=== PATIENT | female | born 1980 | race Caucasian/White ===

== ENCOUNTER 2021-08-05 03:46 | Emergency (ER) | payer OTHER ==
[~2021-08-05] VITALS: Ht 160 cm; Wt 113.4 kg
[2021-08-05] MEDS ORDERED: HYDROCODON-ACE1 EAC7 PO (05:45)
[2021-08-05] MEDS ORDERED: DOXYCYCLINE 10100 M2 PO (05:45)
[2021-08-05 06:00] VITALS: BP 128/68
== END 2021-08-05 06:00 | disposition home or self-care (01) ==
LOC: M.ERS 03:46
DX: S93.505A Unspecified sprain of left lesser toe(s), initial encounter (principal); S91.115A Laceration without foreign body of left lesser toe(s) without damage to nail, initial encounter; W01.0XXA Fall on same level from slipping, tripping and stumbling without subsequent striking against object, initial encounter; Y93.89 Activity, other specified; Y92.89 Other specified places as the place of occurrence of the external cause; Y99.8 Other external cause status